=== PATIENT | female | born 1990 | race Caucasian/White ===

== ENCOUNTER 2018-07-05 14:21 | Emergency (ER) | payer BC ==
[~2018-07-05] VITALS: Ht 154.9 cm; Wt 49.9 kg
[2018-07-05 14:31] VITALS: BP 133/77
--- NOTE | 2018-07-05 14:34 | NUR ---
urine cup handed to pt for sample
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
[2018-07-05 14:49] VITALS: BP 133/77
[2018-07-05] MEDS ORDERED: ACETAMINOPHEN EXTRA STRENGTH 500 MG TAB ONE (16:24)
== END 2018-07-05 17:14 | disposition home or self-care (01) ==
LOC: MED 14:21
DX: S20.212A Contusion of left front wall of thorax, initial encounter (principal); S00.83XA Contusion of other part of head, initial encounter; G43.909 Migraine, unspecified, not intractable, without status migrainosus; Y04.2XXA Assault by strike against or bumped into by another person, initial encounter; Y93.89 Activity, other specified; Y92.89 Other specified places as the place of occurrence of the external cause; Y99.8 Other external cause status
CPT/HCPCS: 71045; 81025; 99283; Q0092